=== PATIENT | male | born 1980 | race Caucasian/White ===

== ENCOUNTER 2017-07-05 12:47 | Emergency (ER) | payer MEDICAID ==
[~2017-07-05] VITALS: Ht 182.9 cm; Wt 92.0 kg
[2017-07-05] MEDS ORDERED: ipratropium/albuterol 3ml nebule NEB ONE (14:55)
[2017-07-05] MEDS ORDERED: methylPREDNISolone sod succ 125mg/2ml vial IM ONE (14:55)
[2017-07-05] MEDS ORDERED: PRED10TA PO (15:59)
[2017-07-05] MEDS ORDERED: ALBU8HFA PO (15:59)
[2017-07-05] MEDS ORDERED: AZIT-57 PO (15:59)
[2017-07-05 16:17] VITALS: BP 135/65
== END 2017-07-05 16:18 | disposition home or self-care (01) ==
LOC: ER 12:48
DX: J20.9 Acute bronchitis, unspecified (principal); J45.901 Unspecified asthma with (acute) exacerbation
CPT/HCPCS: 71046; 94640; 94760; 96372; 99284; J2930

== ENCOUNTER 2017-12-19 15:13 | Emergency (ER) | payer MEDICAID, OTHER ==
[~2017-12-19] VITALS: Ht 182.9 cm; Wt 104.5 kg
[~2017-12-19 15:13] MED LIST: PRED10TA PO
[2017-12-19 15:49] LABS: BASOPHILS # (AUTO) 0.1 X10'3 (0-0.2); BASOPHILS % (AUTO) 0.7 % (0-1); EOSINOPHILS # (AUTO) 0.5 X10'3 (0-0.9); EOSINOPHILS % (AUTO) 5.6 % (0-6); HEMATOCRIT 41.5 % (42.0-52.0); HEMOGLOBIN 14.2 g/dl (14.0-17.9); LYMPHOCYTES # (AUTO) 1.7 X10'3 (1.1-4.8); LYMPHOCYTES % (AUTO) 18.7 % (21-51); MEAN CORPUSCULAR HEMOGLOBIN 29.3 PG (27.0-31.0); MEAN CORPUSCULAR HGB CONC 34.2 % (33.0-36.5); MEAN CORPUSCULAR VOLUME 85.8 FL (78-98); MEAN PLATELET VOLUME 7.8 FL (7.4-10.4); MONOCYTES # (AUTO) 0.4 X10'3 (0-0.9); NEUTROPHILS # (AUTO) 6.3 X10'3 (1.8-7.7); PLATELET COUNT 295 X10'3 (140-440); RED BLOOD COUNT 4.84 X10'6 (4.70-6.10); RED CELL DISTRIBUTION WIDTH 14.9 % (11.5-14.5)
[2017-12-19 15:53] LABS: PARTIAL THROMBOPLASTIN TIME 28 SECONDS (22-32)
[2017-12-19 15:57] LABS: ANION GAP 8 (8-16); BLOOD UREA NITROGEN 26 MG/DL (7-18); BUN/CREATININE RATIO 18.4 (5.4-32.0); CALCIUM 8.8 MG/DL (8.5-10.1); CHLORIDE 103 MMOL/L (99-107); CREATININE 1.41 MG/DL (0.60-1.10); GLUCOSE 139 MG/DL (70-104); POTASSIUM 3.9 MMOL/L (3.5-5.1); SODIUM 140 MMOL/L (135-145); TOTAL CARBON DIOXIDE 29.4 MMOL/L (24-32); eGFR 57 ML/MIN
[2017-12-19 15:58] LABS: ALANINE AMINOTRANSFERASE 46 U/L (12-78); ALBUMIN/GLOBULIN RATIO 1.1 (1.1-1.5); ALKALINE PHOSPHATASE 80 IU/L (46-116); ASPARTATE AMINO TRANSFERASE 41 U/L (10-37); TOTAL PROTEIN 7.5 G/DL (6.4-8.2)
[2017-12-19] MEDS ORDERED: dexamethasone 4mg tablet PO ONE (16:45)
[2017-12-19] MEDS ORDERED: ipratropium/albuterol 3ml nebule NEB ONE (16:45)
[2017-12-19] MEDS ORDERED: DOXY100C43 PO (16:47)
[2017-12-19] MEDS ORDERED: PRED5TAB PO (16:47)
[2017-12-19] MEDS ORDERED: ALB0.5UD IH (16:47)
[2017-12-19] MEDS ORDERED: ALBU8HFA PO (16:47)
[2017-12-19] MEDS ORDERED: terbutaline 1 mg/ml inj SQ STA (18:08)
[2017-12-19] MEDS ORDERED: albuterol 2.5 MG/3 ML nebule CONTNEB PRN (18:10)
[2017-12-19] MEDS: magnesium/D5W IVPB 100 ML IV SCH ×2 (18:24→19:39)
[2017-12-19 19:49] VITALS: BP 157/99
== END 2017-12-19 21:03 | disposition home or self-care (01) ==
LOC: ER 15:14
DX: J45.901 Unspecified asthma with (acute) exacerbation (principal); J20.9 Acute bronchitis, unspecified; Z79.899 Other long term (current) drug therapy
CPT/HCPCS: 36415; 71046; 72125; 80053; 85025; 85610; 85730; 93005; 94640; 94644; 94760; 96365; 96372; 99291; J3105; J8540